=== PATIENT | male | born 1965 | race Caucasian/White ===

== ENCOUNTER 2018-02-24 14:45 | Inpatient (IN) | payer MEDICARE, MEDICAID ==
[2018-02-24 15:48] LABS: ADD MAN DIFF? NO
[2018-02-24 15:49] LABS: BASOPHILS % 0.1 % (0.0-2.0); EOSINOPHILS # 0.1 10^3/ul (0.0-0.5); EOSINOPHILS % 0.9 % (0.0-7.0); HEMATOCRIT 42.3 % (42.0-52.0); HEMOGLOBIN 13.9 g/dl (14.0-18.0); LYMPHOCYTES # 2.3 10^3/ul (0.8-2.9); LYMPHOCYTES % 30.1 % (15.0-51.0); MEAN CORPUSCULAR HGB CONC 32.9 g/dl (32.0-37.0); MEAN CORPUSCULAR VOLUME 94.4 fl (82.0-101.0); MEAN PLATELET VOLUME 9.6 fl (7.4-10.4); MONOCYTE # 0.5 10^3/ul (0.3-0.9); MONOCYTES % 5.8 % (0.0-11.0); NEUTROPHIL # 4.9 10^3/ul (1.6-7.5); NEUTROPHILS % 62.8 % (39.0-77.0); PLATELET COUNT 214 10^3/UL (140-415); RED BLOOD COUNT 4.48 10^6/ul (4.70-6.10); RED CELL DISTRIBUTION WIDTH 13.8 % (11.5-14.5)
[2018-02-24 15:49] LABS: WHITE BLOOD COUNT 7.7 10^3/ul (4.8-10.8)
[2018-02-24 16:09] LABS: INR 0.99; PARTIAL THROMBOPLASTIN TIME 27.1 Sec (23.0-35.0); PROTIME 13.2 Sec (11.9-14.9)
[2018-02-24 16:10] LABS: ALANINE AMINOTRANSFERASE 32 IU/L (13-69); ALBUMIN 3.3 g/dl (3.3-4.9); ALBUMIN/GLOBULIN RATIO 0.97; ALKALINE PHOSPHATASE 85 IU/L (42-121); ANION GAP 9 (8-16); ASPARTATE AMINO TRANSFERASE 66 IU/L (15-46); BILIRUBIN,INDIRECT 0.6 mg/dl (0-1.1); BILIRUBIN,TOTAL 0.6 mg/dl (0.2-1.3); BLOOD UREA NITROGEN 16 mg/dl (7-20); CALCIUM 9.1 mg/dl (8.4-10.2); CARBON DIOXIDE 30 mmol/L (21-31); CHLORIDE 107 mmol/L (97-110); GLUCOSE 111 mg/dl (70-220); POTASSIUM 3.7 mmol/L (3.5-5.1); SODIUM 142 mmol/L (135-144); TOTAL PROTEIN 6.7 g/dl (6.1-8.1)
[2018-02-24 16:21] LABS: ETHANOL < 10.0 mg/dl; LIPASE 2240 U/L (23-300)
[2018-02-24] MEDS: LABETALOL HCL 20MG INJ IV (17:44)
[2018-02-24] MEDS ORDERED: NACL 0.9% 3 ML SYG IV (19:00)
[2018-02-24] MEDS ORDERED: LORAZEPAM 2 MG INJ IV (19:00)
[2018-02-24] MEDS ORDERED: ALBUTEROL/IPRATROPIUM (NEB) 3 ML AMP HHN (19:00)
[2018-02-24] MEDS ORDERED: DOCUSATE SODIUM 100 MG CAP PO (19:00)
[2018-02-24] MEDS ORDERED: NITROGLYCERIN (SL) 0.4 MG TAB SL (19:00)
[2018-02-24] MEDS ORDERED: MAGNESIUM HYDROXIDE 30ML CUP PO (19:00)
[2018-02-24] MEDS ORDERED: ACETAMINOPHEN 325 MG TAB PO (19:00)
[2018-02-24] MEDS ORDERED: ONDANSETRON 4 MG INJ IV (19:00)
[2018-02-24] MEDS ORDERED: NA PHOSPHATE/BIPHOS 133 ML ENEMA PR (19:00)
[2018-02-24] MEDS: SOD CHLORIDE 0.9% 1,000 ML IV (20:12)
[2018-02-24 20:16] LABS: FREE T4 (FREE THYROXINE) 1.04 ng/dl (0.64-1.79)
[2018-02-24] MEDS: HYDROCODONE/APAP (5/325) TAB PO (20:26)
[2018-02-24] MEDS: HEPARIN 5,000 UNIT/0.5 ML VIAL SC (22:09)
[2018-02-24] MEDS: LORAZEPAM 2 MG INJ IV (23:15)
[2018-02-25 01:10] LABS: INR 1.21; PROTIME 15.5 Sec (11.9-14.9); PT RATIO 1.2
[2018-02-25 01:11] LABS: PARTIAL THROMBOPLASTIN TIME 39.8 Sec (23.0-35.0)
[2018-02-25] MEDS: hydrALAzine 20 MG INJ IV ×3 (03:33→21:33)
[2018-02-25 06:12] LABS: ADD MAN DIFF? NO
[2018-02-25 06:17] LABS: BASOPHILS % 0.5 % (0.0-2.0); EOSINOPHILS # 0.2 10^3/ul (0.0-0.5); EOSINOPHILS % 3.1 % (0.0-7.0); HEMATOCRIT 40.9 % (42.0-52.0); HEMOGLOBIN 13.6 g/dl (14.0-18.0); LYMPHOCYTES # 2.1 10^3/ul (0.8-2.9); LYMPHOCYTES % 32.5 % (15.0-51.0); MEAN CORPUSCULAR HEMOGLOBIN 31.3 pg (29.0-33.0); MEAN CORPUSCULAR HGB CONC 33.3 g/dl (32.0-37.0); MEAN PLATELET VOLUME 9.7 fl (7.4-10.4); MONOCYTE # 0.4 10^3/ul (0.3-0.9); MONOCYTES % 6.3 % (0.0-11.0); NEUTROPHIL # 3.7 10^3/ul (1.6-7.5); NEUTROPHILS % 57.4 % (39.0-77.0); PLATELET COUNT 193 10^3/UL (140-415); RED BLOOD COUNT 4.35 10^6/ul (4.70-6.10); RED CELL DISTRIBUTION WIDTH 13.7 % (11.5-14.5)
[2018-02-25 06:17] LABS: WHITE BLOOD COUNT 6.5 10^3/ul (4.8-10.8)
[2018-02-25] MEDS: SOD CHLORIDE 0.9% 1,000 ML IV ×3 (06:18→15:30)
[2018-02-25] MEDS: PANTOPRAZOLE 40 MG INJ IV (06:18)
[2018-02-25 06:43] LABS: CHOLESTEROL 138 mg/dl (100-200)
[2018-02-25 06:43] LABS: CHOL/HDL RATIO 4.3 RATIO; HDL CHOLESTEROL 32 mg/dl (28-71); LDL CHOLESTEROL,CALCULATED 36 mg/dl; TRIGLYCERIDES 349 mg/dl (0-149)
[2018-02-25 06:54] LABS: ANION GAP 6 (8-16); BLOOD UREA NITROGEN 14 mg/dl (7-20); CALCIUM 8.7 mg/dl (8.4-10.2); CARBON DIOXIDE 29 mmol/L (21-31); CHLORIDE 111 mmol/L (97-110); CREATININE 0.63 mg/dl (0.61-1.24); GLUCOSE 103 mg/dl (70-220); LIPASE 797 U/L (23-300); MAGNESIUM 1.9 mg/dl (1.7-2.5); PHOSPHORUS 3.6 mg/dl (2.5-4.9); POTASSIUM 3.2 mmol/L (3.5-5.1); SODIUM 143 mmol/L (135-144)
[2018-02-25] MEDS: MULTIVITAMINS 10 ML, THIAMINE 100 MG, FOLIC ACID 1 MG in SOD CHLORIDE 0.9% 1,000 ML IVPB (08:09)
[2018-02-25] MEDS: HEPARIN 5,000 UNIT/0.5 ML VIAL SC ×2 (08:24→20:52)
[2018-02-25] MEDS: NICOTINE (21 MG/24 HR) PATCH TRANSDERM (08:29)
[2018-02-25] MEDS: morphine 2 MG INJ IV ×3 (10:19→17:48)
[2018-02-25 11:03] LABS: HAAIG REFLEX REFLEX FILED
[2018-02-25 11:56] LABS: HEPATITIS B SURFACE ANTIGEN NEGATIVE (NEGATIVE)
[2018-02-25 12:14] LABS: HEPATITIS B CORE ANTIBODY NEGATIVE (NEGATIVE); HEPATITIS C VIRAL ANTIBODY NEGATIVE (NEGATIVE)
[2018-02-25] MEDS: POTASSIUM CHLORIDE 100 ML IVPB ×2 (13:08→17:43)
[2018-02-25] MEDS: ATORVASTATIN 20 MG TAB PO (20:52)
[2018-02-26] MEDS: SOD CHLORIDE 0.9% 1,000 ML IV ×2 (01:30→11:30)
[2018-02-26] MEDS: PANTOPRAZOLE 40 MG INJ IV (05:41)
[2018-02-26 06:29] LABS: ADD MAN DIFF? NO
[2018-02-26 06:32] LABS: WHITE BLOOD COUNT 6.1 10^3/ul (4.8-10.8)
[2018-02-26 06:32] LABS: BASOPHILS % 0.5 % (0.0-2.0); EOSINOPHILS # 0.3 10^3/ul (0.0-0.5); EOSINOPHILS % 4.4 % (0.0-7.0); HEMATOCRIT 40.1 % (42.0-52.0); HEMOGLOBIN 13.5 g/dl (14.0-18.0); LYMPHOCYTES % 31.9 % (15.0-51.0); MEAN CORPUSCULAR HGB CONC 33.7 g/dl (32.0-37.0); MEAN CORPUSCULAR VOLUME 92.2 fl (82.0-101.0); MEAN PLATELET VOLUME 9.8 fl (7.4-10.4); MONOCYTE # 0.5 10^3/ul (0.3-0.9); MONOCYTES % 7.5 % (0.0-11.0); NEUTROPHIL # 3.4 10^3/ul (1.6-7.5); NEUTROPHILS % 55.5 % (39.0-77.0); PLATELET COUNT 222 10^3/UL (140-415); RED BLOOD COUNT 4.35 10^6/ul (4.70-6.10); RED CELL DISTRIBUTION WIDTH 13.6 % (11.5-14.5)
[2018-02-26 06:52] LABS: ANION GAP 7 (8-16); BLOOD UREA NITROGEN 10 mg/dl (7-20); CALCIUM 8.9 mg/dl (8.4-10.2); CARBON DIOXIDE 26 mmol/L (21-31); CHLORIDE 111 mmol/L (97-110); GLUCOSE 109 mg/dl (70-220); POTASSIUM 3.4 mmol/L (3.5-5.1); SODIUM 141 mmol/L (135-144)
[2018-02-26 07:53] LABS: LIPASE 373 U/L (23-300)
[2018-02-26] MEDS: hydrALAzine 20 MG INJ IV (08:19)
[2018-02-26] MEDS: HEPARIN 5,000 UNIT/0.5 ML VIAL SC ×2 (08:32→20:46)
[2018-02-26] MEDS: MULTIVITAMINS 10 ML, THIAMINE 100 MG, FOLIC ACID 1 MG in SOD CHLORIDE 0.9% 1,000 ML IVPB (08:44)
[2018-02-26] MEDS: SERTRALINE 50 MG TAB PO (12:21)
[2018-02-26] MEDS: POTASSIUM CHLORIDE (SR) 20 MEQ TAB PO (12:21)
[2018-02-26] MEDS: METOPROLOL (XL) 25 MG TAB PO (12:21)
[2018-02-26] MEDS: NICOTINE POLACRILEX 2 MG GUM BUCCAL (12:21)
[2018-02-26] MEDS: morphine 2 MG INJ IV (12:22)
[2018-02-26] MEDS: ATORVASTATIN 20 MG TAB PO (20:42)
[2018-02-26] MEDS: ZOLPIDEM 5 MG TAB PO (23:34)
[2018-02-27] MEDS: hydrALAzine 20 MG INJ IV ×2 (00:40→05:54)
[2018-02-27] MEDS: PANTOPRAZOLE 40 MG INJ IV (05:45)
[2018-02-27 08:48] LABS: ADD MAN DIFF? NO
[2018-02-27 09:05] LABS: BASOPHIL # 0.1 10^3/ul (0.0-0.1); BASOPHILS % 0.9 % (0.0-2.0); EOSINOPHILS # 0.2 10^3/ul (0.0-0.5); EOSINOPHILS % 3.2 % (0.0-7.0); HEMATOCRIT 43.1 % (42.0-52.0); HEMOGLOBIN 14.4 g/dl (14.0-18.0); LYMPHOCYTES # 1.6 10^3/ul (0.8-2.9); LYMPHOCYTES % 30.2 % (15.0-51.0); MEAN CORPUSCULAR HEMOGLOBIN 31.3 pg (29.0-33.0); MEAN CORPUSCULAR HGB CONC 33.4 g/dl (32.0-37.0); MEAN CORPUSCULAR VOLUME 93.7 fl (82.0-101.0); MEAN PLATELET VOLUME 10.5 fl (7.4-10.4); MONOCYTE # 0.3 10^3/ul (0.3-0.9); NEUTROPHIL # 3.2 10^3/ul (1.6-7.5); NEUTROPHILS % 59.3 % (39.0-77.0); PLATELET COUNT 219 10^3/UL (140-415); RED CELL DISTRIBUTION WIDTH 13.9 % (11.5-14.5)
[2018-02-27 09:05] LABS: WHITE BLOOD COUNT 5.4 10^3/ul (4.8-10.8)
[2018-02-27] MEDS: SERTRALINE 50 MG TAB PO (09:27)
[2018-02-27] MEDS: METOPROLOL (XL) 25 MG TAB PO (09:28)
[2018-02-27] MEDS: MULTIVITAMINS 10 ML, THIAMINE 100 MG, FOLIC ACID 1 MG in SOD CHLORIDE 0.9% 1,000 ML IVPB (09:28)
[2018-02-27] MEDS: HEPARIN 5,000 UNIT/0.5 ML VIAL SC (09:40)
[2018-02-27 09:45] LABS: ANION GAP 11 (8-16); BLOOD UREA NITROGEN 10 mg/dl (7-20); CALCIUM 9.3 mg/dl (8.4-10.2); CARBON DIOXIDE 24 mmol/L (21-31); CHLORIDE 110 mmol/L (97-110); GLUCOSE 104 mg/dl (70-220); POTASSIUM 4.3 mmol/L (3.5-5.1); SODIUM 141 mmol/L (135-144)
[2018-02-27] MEDS: HYDROCODONE/APAP (5/325) TAB PO ×2 (10:44→19:32)
[2018-02-27] MEDS: NICOTINE POLACRILEX 2 MG GUM BUCCAL (19:03)
== END 2018-02-27 20:15 | DRG 439 ==
LOC: E/R 14:45 → TEL 17:24
DX: K85.90 Acute pancreatitis without necrosis or infection, unspecified (principal); G93.40 Encephalopathy, unspecified; F10.10 Alcohol abuse, uncomplicated; R41.82 Altered mental status, unspecified; J44.9 Chronic obstructive pulmonary disease, unspecified; G47.30 Sleep apnea, unspecified; F32.9 Major depressive disorder, single episode, unspecified; F41.9 Anxiety disorder, unspecified; M54.9 Dorsalgia, unspecified; I10 Essential (primary) hypertension; Z87.891 Personal history of nicotine dependence
CPT/HCPCS: 36415; 70450; 71045; 80048; 80053; 80061; 80307; 83036; 83690; 83735; 84100; 84439; 84443; 85025; 85610; 85730; 86704; 86709; 86803; 87340; 97116; 97162; 97530; 99285-25; G0378